=== PATIENT | female | born 1995 ===

== ENCOUNTER 2021-02-05 10:03 | Emergency (ER) | payer SELFPAY ==
[~2021-02-05] VITALS: Ht 162.5 cm; Wt 55.8 kg
[2021-02-05 10:43] LABS: BASO % 0.4 % (0.0-1.0); EOS # 0.1 10*3/uL (0.0-0.4); EOS % 1.4 % (1.0-4.0); HEMATOCRIT 36.6 % (37.0-47.0); LYMPH # 1.8 10*3/uL (1.3-4.4); LYMPH % 21.3 % (27.0-41.0); MEAN CELL VOLUME 78.4 fl (81.0-99.0); MEAN CORPUSCULAR HGB 23.6 pg (27.0-31.0); MEAN CORPUSCULAR HGB CONC 30.1 g/dl (33.0-37.0); MEAN PLATELET VOLUME 10.5 fl (9.6-12.3); MONO # 0.4 10*3/uL (0.1-1.0); MONO % 5.2 % (3.0-9.0); NEUT % 71.3 % (47.0-73.0); PLATELET COUNT AUTOMATED 263 10*3/uL (130-400); RED BLOOD COUNT 4.67 10*6/uL (4.10-5.10); RED CELL DISTRI WIDTH 17.3 % (0-14.5); WHITE BLOOD COUNT 8.4 10*3/uL (4.8-10.8)
[2021-02-05 10:49] LABS: BILIRUBIN Negative (Negative); BLOOD 3+ (Negative); CLARITY Clear (Clear); COLOR Red (Yellow); GLUCOSE Negative (Negative); KETONE Negative (Negative); LEUKO ESTERASE Trace (Negative); NITRITE Negative (Negative); SPECIFIC GRAVITY <= 1.005 (1.001-1.030); UROBILINOGEN 0.2 E.U./dl (0.0-1.0)
[2021-02-05 10:54] LABS: BUN 8 mg/dl (7-24); CHLORIDE 109 mmol/L (98-107); CREATININE 0.57 mg/dL (0.55-1.02); POTASSIUM 3.7 mmol/L (3.5-5.1); SODIUM 139 mmol/L (136-145)
[2021-02-05 11:05] LABS: BACTERIA 1+; RBC TNTC rbc/hpf (0-2)
== END 2021-02-05 12:35 | disposition home or self-care (01) ==
LOC: ED 10:03
PROVIDERS: Emergency Medicine
DX: O20.0 Threatened abortion (principal); Z3A.01 Less than 8 weeks gestation of pregnancy

== ENCOUNTER → 2021-02-07 | Outpatient (CLI) | payer SELFPAY | END | disposition home or self-care (01) | LOC: LAB 12:39 | PROVIDERS: ATTEND Emergency Medicine | DX: O20.0 Threatened abortion (principal) ==

== ENCOUNTER 2021-11-11 15:01 | Emergency (ER) | payer OTHER ==
[~2021-11-11] VITALS: Ht 167.6 cm; Wt 53.1 kg
[2021-11-11] MEDS ORDERED: CLEOCIN HCL150 MG PO (15:45)
== END 2021-11-11 15:43 | disposition home or self-care (01) ==
LOC: ED 15:01
DX: L03.114 Cellulitis of left upper limb (principal)

== ENCOUNTER 2021-11-23 19:00 | Emergency (ER) | payer OTHER ==
[~2021-11-23] VITALS: Ht 157.4 cm; Wt 56.7 kg
[~2021-11-23 19:00] MED LIST: CLEOCIN HCL150 MG PO
== END 2021-11-23 19:52 | disposition home or self-care (01) ==
LOC: ED 19:00
DX: S29.012A Strain of muscle and tendon of back wall of thorax, initial encounter (principal); X50.1XXA Overexertion from prolonged static or awkward postures, initial encounter; Y93.89 Activity, other specified; Y92.89 Other specified places as the place of occurrence of the external cause; Y99.8 Other external cause status

== ENCOUNTER 2022-02-24 14:37 | Emergency (ER) | payer OTHER ==
[~2022-02-24] VITALS: Ht 167.6 cm; Wt 58.1 kg
[2022-02-24 16:03] LABS: BASO % 0.2 % (0.0-1.0); EOS # 0.2 10*3/uL (0.0-0.4); HEMATOCRIT 36.7 % (37.0-47.0); LYMPH % 19.8 % (27.0-41.0); MEAN CELL VOLUME 85.9 fl (81.0-99.0); MEAN CORPUSCULAR HGB 27.4 pg (27.0-31.0); MEAN CORPUSCULAR HGB CONC 31.9 g/dl (33.0-37.0); MEAN PLATELET VOLUME 9.1 fl (9.6-12.3); MONO # 0.4 10*3/uL (0.1-1.0); MONO % 3.9 % (3.0-9.0); NEUT # 7.2 10*3/uL (2.3-7.9); NEUT % 73.3 % (47.0-73.0); PLATELET COUNT AUTOMATED 193 10*3/uL (130-400); RED BLOOD COUNT 4.27 10*6/uL (4.10-5.10); RED CELL DISTRI WIDTH 16.8 % (0-14.5); WHITE BLOOD COUNT 9.9 10*3/uL (4.8-10.8)
[2022-02-24 16:18] LABS: ALKALINE PHOSPHATASE 103 U/L (45-117); BUN 6 mg/dl (7-24); CHLORIDE 113 mmol/L (98-107); CREATININE 0.53 mg/dL (0.55-1.02); LIPASE 135 U/L (73-393); POTASSIUM 3.8 mmol/L (3.5-5.1); SGOT/AST 20 IU/L (3-35); SGPT/ALT 28 U/L (12-78); SODIUM 142 mmol/L (136-145); TOTAL PROTEIN 6.2 gm/dL (6.4-8.2)
== END 2022-02-24 19:25 | disposition left against medical advice (07) ==
LOC: ED 14:37
PROVIDERS: Emergency Medicine
DX: O90.89 Other complications of the puerperium, not elsewhere classified (principal); R51.9 Headache, unspecified

== ENCOUNTER 2022-08-26 07:09 | Emergency (ER) | payer OTHER ==
[2022-08-26] MEDS ORDERED: LEVOTHYROXINE50 MCG PO (07:43)
[2022-08-26] MEDS ORDERED: IBU800 M2 PO (07:46)
== END 2022-08-26 08:58 | disposition home or self-care (01) ==
LOC: ED 07:09
DX: S93.601A Unspecified sprain of right foot, initial encounter (principal); S93.401A Sprain of unspecified ligament of right ankle, initial encounter; Z79.899 Other long term (current) drug therapy; X58.XXXA Exposure to other specified factors, initial encounter; Y93.01 Activity, walking, marching and hiking; Y92.89 Other specified places as the place of occurrence of the external cause; Y99.8 Other external cause status